=== PATIENT | female | born 1985 | race African-American/Black ===

== ENCOUNTER 2019-02-24 21:05 | Inpatient (IN) | payer OTHER ==
[~2019-02-24 21:05] MED LIST: ELECTROLYTE-148 SOLN 1,000 ML IV ONE
[2019-02-24 21:44] LABS: BASO % 0.4 % (0-2.0); EOS % 1.9 % (0-4.5); HEMATOCRIT 36.9 % (32.4-45.2); HEMOGLOBIN 11.9 GM/dL (10.7-15.3); LYMPH % 10.7 % (8-40); MCH 31.6 pg (25.7-33.7); MCHC 32.3 g/dl (32.0-36.0); MEAN CELL VOLUME 97.6 fl (80-96); MEAN PLT VOLUME 10.6 fl (7.5-11.1); MONO % 8.7 % (3.8-10.2); NEUT % 78.3 % (42.8-82.8); PLATELET COUNT 143 K/MM3 (134-434); RBC 3.77 M/mm3 (3.60-5.2); RDW 13.2 % (11.6-15.6); WHITE BLOOD COUNT 8.5 K/mm3 (4.0-10.0)
--- NOTE | 2019-02-24 21:49 | HP ---
Past Medical History - Primary Care Physician PCP:: Jazmyn Powell - Admission Chief Complaint: Active Labor History of Present Illness: 33 yo EDC EGA 38.2 week with c/o of labor no rom no bleeding no abd pain GBS negative History Source: Patient Limitations to Obtaining History: No Limitations - Past Medical History ...: 5 ...Para: 2 ...Term: 2 ...Induced : 2 Heme/Onc: Yes: Anemia - Past Surgical History Past Surgical History: Yes: None Hx Myomectomy: No Hx Transabdominal Cerclage: No - Smoking History Have you smoked in the past 12 months: No - Alcohol/Substance Use Hx Alcohol Use: No History of Substance Use: reports: None - Social History History of Recent Travel: No Home Medications - Allergies Allergies/Adverse Reactions: Allergies Allergy/AdvReac Type Severity Reaction Status Date / Time No Known Allergies Allergy Verified 02/24/19 22:00 - Home Medications Home Medications: Ambulatory Orders Ferrous Sulfate [Iron] 325 mg PO DAILY 02/25/19 Vitamins (Sjr) - 1 tab PO DAILY 02/25/19 Review of Systems - Review of Systems Constitutional: reports: No Symptoms Eyes: reports: No Symptoms HENT: reports: No Symptoms Neck: reports: No Symptoms Cardiovascular: reports: No Symptoms Respiratory: reports: No Symptoms Gastrointestinal: reports: Abdominal Pain Genitourinary: reports: No Symptoms Breasts: reports: No Symptoms Reported Musculoskeletal: reports: No Symptoms Integumentary: reports: No Symptoms Neurological: reports: No Symptoms Endocrine: reports: No Symptoms Hematology/Lymphatic: reports: No Symptoms Psychiatric: reports: No Symptoms Physical Exam - Maternity Constitutional: Yes: Well Nourished, No Distress Neck: Yes: WNL Lungs: Clear to auscultation Breast(s): Yes: WNL - Abdominal Exam/OB Fundal Height: 38 Number of Fetuses: Single Presentation: Vertex Category: I Accelerations: None Decelerations: None - Vaginal Exam/OB Dilatation (cm): 5 Amniotic Membrane Status: Bulging Presentation: Vertex/Position - Physical Exam Musculoskeletal: Yes: WNL Extremities: Yes: WNL Edema: No Integumentary: Yes: WNL ...Motor Strength: WNL Problem List - Problems (1) Labor established Code(s): [id number] - Assessment/Plan IUP at 38.2 week Labor Cat 1 GBS neg Plan Admit to LD May dedsire epidural
[2019-02-24 21:54] VITALS: BMI 24.6
[2019-02-24 21:58] LABS: BLOOD UREA NITROGEN 8.9 mg/dL (7-18); CALCIUM 8.6 mg/dL (8.5-10.1); CREATININE 0.8 mg/dL (0.55-1.3)
[2019-02-24] MEDS ORDERED: FENTANYL/BUPIVACAINE/NS/PF - PCEA - 50 ML DISP.SYRIN EP ONE (22:00)
[2019-02-24] MEDS ORDERED: ELECTROLYTE-148 SOLN 1,000 ML IV SCH (22:00)
[2019-02-24] MEDS ORDERED: NALOXONE HCL 0.4 MG/ML VIAL IVPUSH PRN (22:04)
[2019-02-24] MEDS ORDERED: BUPIVACAINE HCL/PF 0.25% (2.5MG/ML) 10 ML VIAL ONE (22:06)
[2019-02-24] MEDS ORDERED: LIDO 2%/EPI 1:200000 PRESRVFRE (20 ML SDVIAL) ONE (22:06)
[2019-02-24 22:13] LABS: INR 0.87 (0.83-1.09); PROTHROMBIN TIME (PATIENT) 10.3 SEC (9.7-13.0)
[2019-02-24 22:15] LABS: ACTIVATED PTT 30.3 SECONDS (25.2-36.5)
[2019-02-24] MEDS ORDERED: FENTANYL/BUPIVACAINE/NS/PF - PCEA - 50 ML DISP.SYRIN EP SCH (22:15)
[2019-02-24] MEDS ORDERED: OXYTOCIN 20 UNITS in 0.9% NS 20 UNIT/1,000 ML INFUS.BAG IV ONE (22:35)
[2019-02-24] MEDS ORDERED: LIDOCAINE HCL 1% PRESERVATIVE FREE - 30ML VIAL ONE (22:35)
--- NOTE | 2019-02-24 22:57 | PN ---
Ante-Partal Exam - Subjective Subjective: Pt sp epidural Vital Signs: Vital Signs Temperature 98.1 F 02/24/19 21:05 Pulse Rate 74 02/24/19 21:05 Respiratory Rate 20 02/24/19 21:05 Blood Pressure 116/68 02/24/19 21:05 O2 Sat by Pulse Oximetry (%) Bleeding: Yes (blody show) Bleeding Description: Mild Headache: No Visual changes: No Right upper quadrant pain: No - Contractions Contractions: Yes Regularity: Regular Intensity: Moderate Monitor Mode: External - Exam during Labor Heart Rate: 127 Variability: Moderate Category: I Monitor Accelerations: Present Monitor Decelerations: None Exam: Vaginal Dilatation (cm): 9 Effacement (%): 80 Amniotic Membrane Status: Bulging Amniotic Fluid: Meconium Stained Meconium Staining: Light Presentation: Vertex Station: -1 - Intrapartum Hemorrhage Risk Risk Score: 0 Risk Level: Low Risk - Assessment/Plan Assessment/Plan: IUP at 38.2 week Cat 1 - GBS neg Plan continue present management anticipate vaginal delivery
[2019-02-24] MEDS: OXYTOCIN 20 UNITS in 0.9% NS 20 UNIT/1,000 ML INFUS.BAG IV SCH (23:51)
[2019-02-24] MEDS ORDERED: BENZOCAINE 28 GM HEMORRHOIDAL OINTMENT PR PRN (23:54)
[2019-02-24] MEDS ORDERED: METHYLERGONOVINE MALEATE 0.2 MG/1 ML AMP IM PRN (23:54)
[2019-02-24] MEDS ORDERED: BENZOCAINE 20% 57 GM BOTTLE TP PRN (23:54)
[2019-02-24] MEDS ORDERED: BISACODYL 10 MG SUPP.RECT PR PRN (23:54)
[2019-02-24] MEDS ORDERED: WITCH HAZEL 50% (TUCKS) 40 PAD/JAR PAD TP PRN (23:54)
--- NOTE | 2019-02-24 23:54 | PN ---
Delivery - Delivery Vaginal Delivery: No Problems, Spontaneous Type of Anesthesia: Epidural Episiotomy/Laceration: None EBL (cc): 250 Delivery, Single - Stages of Labor Placenta: Yes: Spontaneous - Condition of Gender: Male Position: OA - Feeding Plan Initial Plan: Exclusive throughout hospitalization
[2019-02-25 00:29] LABS: ARTERIAL BLD GAS O2 SATURATION 38.6 % (95-98); ARTERIAL BLOOD GAS BASE EXCESS -0.7 meq/l (-2-2); ARTERIAL BLOOD GAS pH 7.28 (7.35-7.45)
[2019-02-25 00:32] LABS: VENOUS PC02 51.9 mmHg (41-51); VENOUS PH 7.31 (7.31-7.41)
[2019-02-25 00:35] LABS: ARTERIAL BLOOD GAS PO2 20.9 mmHg (80-105); VENOUS PO2 26.7 mmHg (30-40)
[2019-02-25] MEDS: ACETAMINOPHEN 325 MG TABLET (FP) PO PRN ×4 (03:24→21:23)
[2019-02-25] MEDS: IBUPROFEN 600 MG TABLET (FP) PO PRN ×4 (03:25→21:23)
[2019-02-25] MEDS: OXYTOCIN 20 UNITS in 0.9% NS 20 UNIT/1,000 ML INFUS.BAG IV SCH (03:47)
[2019-02-25 06:56] LABS: BASO % 0.4 % (0-2.0); EOS % 0.5 % (0-4.5); HEMOGLOBIN 10.1 GM/dL (10.7-15.3); LYMPH % 5.4 % (8-40); MCH 31.3 pg (25.7-33.7); MCHC 32.6 g/dl (32.0-36.0); MEAN PLT VOLUME 9.9 fl (7.5-11.1); MONO % 7.8 % (3.8-10.2); NEUT % 85.9 % (42.8-82.8); PLATELET COUNT 128 K/MM3 (134-434); RBC 3.23 M/mm3 (3.60-5.2); RDW 13.1 % (11.6-15.6); WHITE BLOOD COUNT 13.5 K/mm3 (4.0-10.0)
--- NOTE | 2019-02-25 21:06 | PN ---
Post Note - Post Date of Delivery: 02/24/19 Post Day: 1 Vital Signs: Vital Signs - 24 hr 02/24/19 02/24/19 02/24/19 21:12 22:20 22:30 Temperature Pulse Rate 69 77 76 Respiratory 20 19 20 Rate Blood Pressure 121/78 92/76 118/66 O2 Sat by Pulse 100 Oximetry (%) 02/24/19 02/24/19 02/24/19 22:35 22:40 22:45 Temperature Pulse Rate 89 79 71 Respiratory 18 19 18 Rate Blood Pressure 116/74 121/68 121/64 O2 Sat by Pulse 100 100 100 Oximetry (%) 02/24/19 02/24/19 02/24/19 22:50 22:55 23:00 Temperature Pulse Rate 72 74 76 Respiratory 18 19 19 Rate Blood Pressure 115/59 L 122/60 123/62 O2 Sat by Pulse 100 100 100 Oximetry (%) 02/24/19 02/24/19 02/24/19 23:15 23:30 23:45 Temperature Pulse Rate 66 73 76 Respiratory 19 20 18 Rate Blood Pressure 119/59 L 121/65 106/72 O2 Sat by Pulse 100 100 100 Oximetry (%) 02/25/19 02/25/19 02/25/19 00:30 00:45 01:00 Temperature Pulse Rate 67 63 64 Respiratory 20 19 18 Rate Blood Pressure 114/54 L 114/59 L 97/78 O2 Sat by Pulse 100 100 100 Oximetry (%) 02/25/19 02/25/19 02/25/19 01:15 02:04 06:12 Temperature 98.1 F 98.6 F 98.6 F Pulse Rate 67 66 60 Respiratory 20 20 20 Rate Blood Pressure 111/67 139/61 119/56 L O2 Sat by Pulse 100 Oximetry (%) 02/25/19 02/25/19 02/25/19 09:00 14:00 18:00 Temperature 98.3 F 98.8 F 98.1 F Pulse Rate 70 73 86 Respiratory 20 20 20 Rate Blood Pressure 137/64 116/59 L 118/49 L O2 Sat by Pulse Oximetry (%) Labs: Laboratory Results - last 24 hr 02/24/19 02/24/19 02/24/19 06:40 21:30 21:30 WBC 8.5 RBC 3.77 Hgb 11.9 Hct 36.9 MCV 97.6 H MCH 31.6 MCHC 32.3 RDW 13.2 Plt Count 143 MPV 10.6 Absolute Neuts (auto) 6.7 Neutrophils % 78.3 Lymphocytes % 10.7 Monocytes % 8.7 Eosinophils % 1.9 Basophils % 0.4 Nucleated RBC % 0 PT with INR 10.30 INR 0.87 PTT (Actin FS) 30.3 Puncture Site ABG pH ABG pCO2 at Pt Temp ABG pO2 at Pt Temp ABG HCO3 ABG O2 Sat (Measured) ABG O2 Content ABG Base Excess Dickson Test VBG pH POC VBG pCO2 POC VBG pO2 VBG HCO3 VBG O2 Sat (Rebecca) VBG Base Excess Oxygen Flow Rate Sodium Potassium Chloride Carbon Dioxide Anion Gap BUN Creatinine Est GFR (CKD-EPI)AfAm Est GFR (CKD-EPI)NonAf Random Glucose Calcium RPR Titer HIV 1&2 Antibody Screen HIV P24 Antigen Blood Type O POSITIVE Antibody Screen 02/24/19 02/24/19 02/24/19 21:30 21:30 21:30 WBC RBC Hgb Hct MCV MCH MCHC RDW Plt Count MPV Absolute Neuts (auto) Neutrophils % Lymphocytes % Monocytes % Eosinophils % Basophils % Nucleated RBC % PT with INR INR PTT (Actin FS) Puncture Site ABG pH ABG pCO2 at Pt Temp ABG pO2 at Pt Temp ABG HCO3 ABG O2 Sat (Measured) ABG O2 Content ABG Base Excess Dickson Test VBG pH POC VBG pCO2 POC VBG pO2 VBG HCO3 VBG O2 Sat (Rebecca) VBG Base Excess Oxygen Flow Rate Sodium 139 Potassium 4.0 Chloride 106 Carbon Dioxide 25 Anion Gap 8 BUN 8.9 Creatinine 0.8 Est GFR (CKD-EPI)AfAm 113.86 Est GFR (CKD-EPI)NonAf 98.24 Random Glucose 105 Calcium 8.6 RPR Titer Nonreactive HIV 1&2 Antibody Screen HIV P24 Antigen Blood Type O POSITIVE Antibody Screen Negative 02/24/19 02/24/19 02/24/19 21:30 23:40 23:40 WBC RBC Hgb Hct MCV MCH MCHC RDW Plt Count MPV Absolute Neuts (auto) Neutrophils % Lymphocytes % Monocytes % Eosinophils % Basophils % Nucleated RBC % PT with INR INR PTT (Actin FS) Puncture Site No Result Required. ABG pH 7.28 L ABG pCO2 at Pt Temp 59.0 H ABG pO2 at Pt Temp 20.9 L* ABG HCO3 26.8 ABG O2 Sat (Measured) 38.6 L ABG O2 Content 7.5 L* ABG Base Excess -0.7 Dickson Test No Result Required. VBG pH 7.31 POC VBG pCO2 51.9 H POC VBG pO2 26.7 L VBG HCO3 25.2 VBG O2 Sat (Rebecca) 57.8 L VBG Base Excess -1.5 Oxygen Flow Rate No Result Required. Sodium Potassium Chloride Carbon Dioxide Anion Gap BUN Creatinine Est GFR (CKD-EPI)AfAm Est GFR (CKD-EPI)NonAf Random Glucose Calcium RPR Titer HIV 1&2 Antibody Screen Negative HIV P24 Antigen Negative Blood Type Antibody Screen 02/25/19 06:40 WBC 13.5 H RBC 3.23 L Hgb 10.1 L Hct 31.0 L D MCV 96.0 MCH 31.3 MCHC 32.6 RDW 13.1 Plt Count 128 L MPV 9.9 Absolute Neuts (auto) 11.6 H Neutrophils % 85.9 H Lymphocytes % 5.4 L D Monocytes % 7.8 Eosinophils % 0.5 Basophils % 0.4 Nucleated RBC % 0 PT with INR INR PTT (Actin FS) Puncture Site ABG pH ABG pCO2 at Pt Temp ABG pO2 at Pt Temp ABG HCO3 ABG O2 Sat (Measured) ABG O2 Content ABG Base Excess Dickson Test VBG pH POC VBG pCO2 POC VBG pO2 VBG HCO3 VBG O2 Sat (Rebecca) VBG Base Excess Oxygen Flow Rate Sodium Potassium Chloride Carbon Dioxide Anion Gap BUN Creatinine Est GFR (CKD-EPI)AfAm Est GFR (CKD-EPI)NonAf Random Glucose Calcium RPR Titer HIV 1&2 Antibody Screen HIV P24 Antigen Blood Type Antibody Screen - Subjective Subjective: No Complaints, Ambulating, Voiding, Tolerating Diet, No Nausea or vomiting, Other (desires circ) - Objective Afebrile: Yes Breast: Not engorged Abdomen: Soft, Non-tender Uterus: Fundus firm, Non-tender Vagina: Scant lochia Extremities: Non-tender - Assessment/Plan (1) Labor established Assessment: S/P Normal Plan: Routine Care (2) anemia Assessment: S/P Normal Plan: Routine Care, Other (DC home in am)
[2019-02-26] MEDS: ACETAMINOPHEN 325 MG TABLET (FP) PO PRN ×2 (03:14→13:38)
[2019-02-26] MEDS: IBUPROFEN 600 MG TABLET (FP) PO PRN ×2 (03:15→13:39)
--- NOTE | 2019-02-26 06:03 | DS ---
Physical Exam-[employer] Vital Signs: Vital Signs Temperature 98.5 F 02/25/19 21:27 Pulse Rate 62 02/25/19 21:27 Respiratory Rate 20 02/25/19 21:27 Blood Pressure 119/70 02/25/19 21:27 O2 Sat by Pulse Oximetry (%) 100 02/25/19 21:00 Constitutional: Yes: Well Nourished, No Distress Cardiovascular: Yes: WNL Respiratory: Yes: WNL Gastrointestinal: Yes: WNL, Soft ....Post : Yes: Uterus firm, Uterus non-tender Breast(s): Yes: WNL Musculoskeletal: Yes: WNL Extremities: Yes: WNL Edema: No Neurological: Yes: WNL, Alert, Oriented Labs: CBC, BMP 02/25/19 06:40 02/24/19 21:30 Delivery - Delivery Vaginal Delivery: No Problems, Spontaneous Type of Anesthesia: Epidural Episiotomy/Laceration: None EBL (cc): 250 Delivery, Single - Stages of Labor Date 1st Stage Initiatied: 02/24/19 Time 1st Stage Initiated: 20:00 Date 2nd Stage Initiated: 02/24/19 Time 2nd Stage Initiated: 23:40 Date of Delivery: 02/24/19 Time of Delivery: 23:48 Time Placenta Delivered: 23:51 Placenta: Yes: Spontaneous - Condition of Infant Personal Care Attendant/Tile Trimmer Present: No Gender: Male Weight: 6 lb 9 oz Position: OA Total Hours ROM (Hrs/Mins): 2hrs 13min - 1 Minute Total Score: 9 5 Minutes Total Score: 9 - [place] Feeding Plan Initial Plan: Exclusive throughout hospitalization Discharge Summary Reason For Visit: LABOR Current Active Problems Labor established (Acute) anemia (Acute) Procedures: Principal: Normal vaginal delivery Hospital Course: UNremarkable Condition: Good - Instructions Diet, Activity, Other Instructions: Physical activity Resume your normal everyday activity as tolerated no heavy lifting or exercise until seen by your surgeon. You may walk unlimited nolberto of and climb stairs. You may resume driving the car when you feel safe and comfortable behind the wheel. No sexual activity as instructed. Wound care If you have a bandage, leave it on, and keep dry for 48-72 hours. After that time discard the outer bandage. If they are tapes on the skin under the out of bandage leave them in place. They will peel off in the next 7 to 10 days. Do Not Peel them off. You may shower the day after surgery. If there are tapes present on the skin, you may shower over them. Diet There are no dietary restrictions. Eat healthy, high-fiber foods. Drink 6 to 8 glasses of liquid each day. This will assist in keeping your bowels are regular. Pain management You may take Tylenol or acetaminophen or Ibuprofen (for example, Motrin, Advil etc.) from my pain prescription medication is ordered should be taken as prescribed for moderate to severe pain. Call MD for any of the following: Severe pain not relieved by medication Fever of 101 or higher Excessive bleeding or drainage on dressing Inability to urinate Disposition: HOME - Home Medications Comprehensive Discharge Medication List: Ambulatory Orders Ferrous Sulfate [Iron] 325 mg PO DAILY 02/25/19 Vitamins (Sjr) - 1 tab PO DAILY 02/25/19
[2019-02-26 08:06] VITALS: BP 110/69; PULSE 70; TEMP 98.7
== END 2019-02-26 15:05 | disposition home or self-care (01) | DRG 560 ==
LOC: JLDR 21:05 → J3W 02-25 01:46
PROVIDERS: ADMIT Obstetrics & Gynecology; ATTEND Obstetrics & Gynecology
PROC: 10E0XZZ Delivery of Products of Conception, External Approach (ICD-10-PCS; principal; 2019-02-24)
DX: O99.02 Anemia complicating childbirth (principal); Z3A.38 38 weeks gestation of pregnancy; Z37.0 Single live birth
CPT/HCPCS: 36415; 36600; 59409; 80048; 82803; 85025; 85610; 85730; 86593; 86850; 86900; 86901; 87389

== ENCOUNTER 2020-12-21 20:01 | Observation (INO) | payer OTHER ==
[2020-12-21] MEDS ORDERED: LACTATED RINGERS SOLUTION 1000 ML INFUS.BAG IV ONE (20:34)
[2020-12-21] MEDS ORDERED: FAMOTIDINE 20 MG/50 ML IVPB 20 MG/50 ML MG IVPB ONE ×2 (20:34→20:49)
[2020-12-21] MEDS ORDERED: MAG HYDROX/AL HYDROX/SIMETH 30 ML UNIT-DOSE CUP PO PRN (20:34)
[2020-12-21] MEDS ORDERED: ONDANSETRON 4 MG/2 ML VIAL IVPUSH ONE ×2 (20:40→23:27)
[2020-12-21] MEDS ORDERED: ONDANSETRON 4 MG/2 ML VIAL ONE (20:49)
[2020-12-21] MEDS ORDERED: ACETAMINOPHEN INJECTION 100 ML IVPB ONE (20:49)
[2020-12-21 21:18] LABS: BASO % 0.4 % (0-2.0); HEMATOCRIT 42.7 % (32.4-45.2); LYMPH % 9.8 % (8-40); MCH 30.9 pg (25.7-33.7); MCHC 32.9 g/dl (32.0-36.0); MEAN CELL VOLUME 93.9 fl (80-96); MONO % 4.8 % (3.8-10.2); PLATELET COUNT 181 K/MM3 (134-434); RBC 4.55 M/mm3 (3.60-5.2); WHITE BLOOD COUNT 5.8 K/mm3 (4.0-10.0)
[2020-12-21 21:47] LABS: ALBUMIN 4.5 g/dl (3.4-5.0); BLOOD UREA NITROGEN 9.7 mg/dL (7-18); CALCIUM 9.4 mg/dL (8.5-10.1)
[2020-12-21 21:49] LABS: CREATININE 0.8 mg/dL (0.55-1.3)
[2020-12-21 21:51] LABS: BILIRUBIN,TOTAL 0.7 mg/dL (0.2-1); TOT PROT 7.9 g/dl (6.4-8.2)
[2020-12-21] MEDS ORDERED: SODIUM CHLORIDE 0.9% 1000 ML INFUS.BAG IV ONE (22:25)
[2020-12-21] MEDS ORDERED: METOCLOPRAMIDE HCL INJECTION 10 MG/2 ML VIAL IVPUSH ONE (22:26)
[2020-12-21] MEDS ORDERED: METOCLOPRAMIDE HCL INJECTION 10 MG/2 ML VIAL ONE (22:35)
[2020-12-21 23:08] LABS: URINE APPEARANCE CLEAR; URINE BILIRUBIN NEGATIVE (NEGATIVE); URINE COLOR YELLOW; URINE GLUCOSE (UA) NEGATIVE (NEGATIVE); URINE KETONE 2+ (NEGATIVE); URINE LEUK ESTERASE NEGATIVE (NEGATIVE); URINE NITRITE NEGATIVE (NEGATIVE); URINE PROTEIN NEGATIVE (NEGATIVE); URINE UROBILINOGEN 0.2 mg/dL (0.2-1.0)
[2020-12-21] MEDS ORDERED: LORazepam 2 MG/ML SDV VIAL IVPUSH ONE (23:30)
[2020-12-22 00:08] LABS: COCAINE, UR NEGATIVE ng/ml (CUTOFF=300); METHADONE, UR NEGATIVE ng/ml (CUTOFF=300); OPIATES, URI NEGATIVE ng/ml (CUTOFF=300); URINE BARBITURATES NEGATIVE ng/ml (CUTOFF=200)
[2020-12-22 00:09] LABS: PHENCYCLIDINE,URINE NEGATIVE ng/ml (CUTOFF=25)
[2020-12-22] MEDS ORDERED: LORazepam 2 MG/ML SDV VIAL ONE (00:35)
[2020-12-22 00:46] LABS: URINE AMPHETAMINES NEGATIVE ng/ml (CUTOFF=500); URINE BENZODIAZEPINES NEGATIVE ng/ml (CUTOFF=200)
[2020-12-22] MEDS ORDERED: ACETAMINOPHEN 325 MG TABLET (FP) PO PRN (01:34)
[2020-12-22] MEDS ORDERED: HALOPERIDOL LACTATE 5 MG/ML IM PRN (01:40)
[2020-12-22] MEDS ORDERED: SODIUM CHLORIDE 1,000 ML IV SCH (01:45)
[2020-12-22 05:25] VITALS: BMI 20.2
[2020-12-22] MEDS ORDERED: METOCLOPRAMIDE HCL INJECTION 10 MG/2 ML VIAL IVPUSH PRN (07:55)
[2020-12-22] MEDS ORDERED: ENOXAPARIN NA (PORCINE) 40 MG/0.4 ML DISP.SYRIN SQ SCH (10:00)
[2020-12-22] MEDS ORDERED: PT OWN MED DRAWER 7, Y5N ONE (12:43)
[2020-12-22 14:10] LABS: BASO % 0.5 % (0-2.0); EOS % 0.2 % (0-4.5); HEMATOCRIT 37.4 % (32.4-45.2); HEMOGLOBIN 12.4 GM/dL (10.7-15.3); LYMPH % 23.6 % (8-40); MCH 31.1 pg (25.7-33.7); MCHC 33.1 g/dl (32.0-36.0); MEAN CELL VOLUME 94.1 fl (80-96); MONO % 9.6 % (3.8-10.2); NEUT % 66.1 % (42.8-82.8); PLATELET COUNT 149 K/MM3 (134-434); RBC 3.97 M/mm3 (3.60-5.2); RDW 12.7 % (11.6-15.6); WHITE BLOOD COUNT 8.3 K/mm3 (4.0-10.0)
[2020-12-22 14:24] LABS: CALCIUM 8.2 mg/dL (8.5-10.1)
[2020-12-22 14:25] LABS: BLOOD UREA NITROGEN 7.7 mg/dL (7-18)
[2020-12-22 14:28] LABS: CREATININE 0.9 mg/dL (0.55-1.3); PHOSPHOROUS 1.7 mg/dL (2.5-4.9)
[2020-12-22 14:29] LABS: BILIRUBIN,TOTAL 0.6 mg/dL (0.2-1); TOT PROT 6.1 g/dl (6.4-8.2)
[2020-12-22 14:38] LABS: ALBUMIN 3.5 g/dl (3.4-5.0)
[2020-12-22 15:26] VITALS: TEMP 98.6
[2020-12-22 17:52] VITALS: BP 116/74; PULSE 68
[2020-12-23] MEDS ORDERED: METOCLOPRAMIDE HCL INJECTION 10 MG/2 ML VIAL IVPUSH PRN (06:00)
== END 2020-12-22 19:13 | disposition home or self-care (01) ==
LOC: JER 20:01 → JERBED 23:29 → J8W 12-22 04:49
PROVIDERS: ADMIT Hospitalist; ATTEND Internal Medicine
PROC: 3E023GC Introduction of Other Therapeutic Substance into Muscle, Percutaneous Approach (ICD-10-PCS; principal; 2020-12-21)
PROC: 3E033GC Introduction of Other Therapeutic Substance into Peripheral Vein, Percutaneous Approach (ICD-10-PCS; 2020-12-21)
PROC: 3E033NZ Introduction of Analgesics, Hypnotics, Sedatives into Peripheral Vein, Percutaneous Approach (ICD-10-PCS; 2020-12-21)
PROC: 3E0337Z Introduction of Electrolytic and Water Balance Substance into Peripheral Vein, Percutaneous Approach (ICD-10-PCS; 2020-12-21)
DX: F12.10 Cannabis abuse, uncomplicated (principal); R11.2 Nausea with vomiting, unspecified; R00.0 Tachycardia, unspecified; Z98.890 Other specified postprocedural states; Z29.9 Encounter for prophylactic measures, unspecified; K59.00 Constipation, unspecified; R19.7 Diarrhea, unspecified
CPT/HCPCS: 36415; 71045-TC-FY; 80053; 80307; 81003; 83690; 83735; 84100; 84703; 85025; 87086; 93005; 93010; 96361; 96365; 96372; 96375; 99285-25; C9803; G0378; U0003; U0005

== ENCOUNTER 2021-01-05 05:27 | Emergency (ER) | payer OTHER ==
[2021-01-05 05:50] VITALS: TEMP 98.3; BMI 20.7
[2021-01-05] MEDS ORDERED: METOCLOPRAMIDE HCL INJECTION 10 MG/2 ML VIAL ONE (05:51)
[2021-01-05] MEDS ORDERED: METOCLOPRAMIDE HCL INJECTION 10 MG/2 ML VIAL IVPB ONE (05:51)
[2021-01-05] MEDS ORDERED: SODIUM CHLORIDE 0.9% 500 ML INFUS.BAG IV ONE (06:28)
[2021-01-05] MEDS ORDERED: HALOPERIDOL LACTATE 5 MG/ML IM ONE (07:20)
[2021-01-05] MEDS ORDERED: HALOPERIDOL LACTATE 5 MG/ML ONE (07:26)
[2021-01-05 07:36] VITALS: BP 118/72; PULSE 65
[2021-01-05 07:42] LABS: BASO % 0.8 % (0-2.0); EOS % 0.1 % (0-4.5); HEMATOCRIT 43.3 % (32.4-45.2); HEMOGLOBIN 14.5 GM/dL (10.7-15.3); LYMPH % 11.8 % (8-40); MCH 31.1 pg (25.7-33.7); MCHC 33.4 g/dl (32.0-36.0); MEAN CELL VOLUME 93.3 fl (80-96); MEAN PLT VOLUME 10.6 fl (7.5-11.1); MONO % 9.3 % (3.8-10.2); PLATELET COUNT 160 K/MM3 (134-434); RBC 4.65 M/mm3 (3.60-5.2); RDW 12.7 % (11.6-15.6); WHITE BLOOD COUNT 4.2 K/mm3 (4.0-10.0)
[2021-01-05] MEDS ORDERED: LACTATED RINGERS SOLUTION 1000 ML INFUS.BAG IV ONE (07:44)
[2021-01-05 08:10] LABS: BLOOD UREA NITROGEN 6.8 mg/dL (7-18)
[2021-01-05 08:13] LABS: CALCIUM 9.9 mg/dL (8.5-10.1); CREATININE 0.7 mg/dL (0.55-1.3)
[2021-01-05] MEDS ORDERED: ONDANSETRON 4 MG/2 ML VIAL IVPUSH ONE (09:00)
[2021-01-05] MEDS ORDERED: ONDANSETRON 4 MG/2 ML VIAL ONE (09:19)
== END 2021-01-05 09:31 | disposition home or self-care (01) ==
LOC: JER 05:27
PROC: 3E023NZ Introduction of Analgesics, Hypnotics, Sedatives into Muscle, Percutaneous Approach (ICD-10-PCS; principal; 2021-01-05)
PROC: 3E033GC Introduction of Other Therapeutic Substance into Peripheral Vein, Percutaneous Approach (ICD-10-PCS; 2021-01-05)
PROC: 3E033GC Introduction of Other Therapeutic Substance into Peripheral Vein, Percutaneous Approach (ICD-10-PCS; 2021-01-05)
DX: F12.188 Cannabis abuse with other cannabis-induced disorder (principal)
CPT/HCPCS: 36415; 80048; 84703; 85025; 99284-25

== ENCOUNTER 2021-05-30 11:05 | Emergency (ER) | payer OTHER ==
[2021-05-30 11:15] VITALS: BMI 18.3
[2021-05-30] MEDS ORDERED: METOCLOPRAMIDE HCL INJECTION 10 MG/2 ML VIAL IVPB ONE (11:45)
[2021-05-30] MEDS ORDERED: FAMOTIDINE 20 MG/50 ML IVPB 20 MG/50 ML MG IVPB ONE ×2 (11:45→12:01)
[2021-05-30] MEDS ORDERED: ONDANSETRON 4 MG/2 ML VIAL IVPUSH ONE (11:45)
[2021-05-30] MEDS ORDERED: LACTATED RINGERS SOLUTION 1000 ML INFUS.BAG IV ONE (11:46)
[2021-05-30] MEDS ORDERED: ACETAMINOPHEN 1000 MG/100 ML VIAL (NON FORMULARY) IVPB ONE (11:49)
[2021-05-30] MEDS ORDERED: ACETAMINOPHEN INJECTION 100 ML IVPB ONE (12:00)
[2021-05-30] MEDS ORDERED: METOCLOPRAMIDE HCL INJECTION 10 MG/2 ML VIAL ONE (12:00)
[2021-05-30] MEDS ORDERED: ONDANSETRON 4 MG/2 ML VIAL ONE (12:01)
[2021-05-30 12:20] LABS: BASO % 0.6 % (0-2.0); EOS % 0.1 % (0-4.5); HEMATOCRIT 42.7 % (32.4-45.2); HEMOGLOBIN 14.1 GM/dL (10.7-15.3); LYMPH % 8.9 % (8-40); MCH 31.1 pg (25.7-33.7); MCHC 33.2 g/dl (32.0-36.0); MEAN CELL VOLUME 93.9 fl (80-96); MEAN PLT VOLUME 10.6 fl (7.5-11.1); MONO % 7.8 % (3.8-10.2); NEUT % 82.6 % (42.8-82.8); PLATELET COUNT 160 10^3/uL (134-434); RBC 4.54 M/mm3 (3.60-5.2); WHITE BLOOD COUNT 5.2 K/mm3 (4.0-10.0)
[2021-05-30 12:49] LABS: CALCIUM 9.8 mg/dL (8.5-10.1)
[2021-05-30 12:50] LABS: ALBUMIN 4.8 g/dl (3.4-5.0)
[2021-05-30 12:53] LABS: CREATININE 0.8 mg/dL (0.55-1.3)
[2021-05-30 12:54] LABS: BILIRUBIN,TOTAL 0.6 mg/dL (0.2-1)
[2021-05-30 12:55] LABS: TOT PROT 8.3 g/dl (6.4-8.2)
[2021-05-30 17:02] VITALS: BP 110/68; PULSE 88; TEMP 98.5
== END 2021-05-30 17:03 | disposition home or self-care (01) ==
LOC: JER 11:05
PROC: 3E033GC Introduction of Other Therapeutic Substance into Peripheral Vein, Percutaneous Approach (ICD-10-PCS; principal; 2021-05-30)
DX: R11.2 Nausea with vomiting, unspecified (principal)
CPT/HCPCS: 36415; 80053; 84703; 85025; 99284-25; J0131

== ENCOUNTER 2022-07-26 14:46 | Emergency (ER) | payer OTHER ==
[2022-07-26 15:20] VITALS: BP 94/55; PULSE 76; RESP 18; TEMP 98.5; BMI 19.3
[2022-07-26] MEDS ORDERED: IBUPROFEN 600 MG TABLET (FP) PO ONE ×2 (16:50→17:01)
== END 2022-07-26 18:25 | disposition home or self-care (01) ==
LOC: JER 14:46 → JERFT 14:46
DX: L03.113 Cellulitis of right upper limb (principal)
CPT/HCPCS: 73130-TC-RT-FY; 99283-25